=== PATIENT | male | born 1995 | race African-American/Black ===

== ENCOUNTER 2023-10-08 11:19 | Emergency (ER) | payer BC ==
[2023-10-08 11:51] VITALS: BP 131/85; PULSE 79; RESP 18; TEMP 98.6; BMI 29.8
[2023-10-08] MEDS ORDERED: NAPROXEN 500 MG TABLET ONE (11:52)
[2023-10-08] MEDS: NAPROXEN 500 MG TABLET PO ONE (12:01)
== END 2023-10-08 13:07 | disposition home or self-care (01) ==
LOC: EDBD → FER 11:19
DX: R07.81 Pleurodynia (principal); R10.9 Unspecified abdominal pain
CPT/HCPCS: 71046-TC-FY; 71101-TC-RT-FY; 74018-TC-FY; 99284-25